=== PATIENT | male | born 1975 | race Caucasian/White ===

== ENCOUNTER 2018-05-15 18:58 | Emergency (ER) | payer MEDICARE ==
[~2018-05-15] VITALS: Ht 175.3 cm; Wt 158.8 kg
[~2018-05-15 18:58] MED LIST: ADVAIR 250-501 EACH; ADVAIR 500-501 EACH; ADVAIR HFA 230M12 GM INH; ALBUTEROL INHAL17 GM; ALBUTEROL2.5 MG/31 INH; ATIVAN1 MG PO; AZITHROMYC200 MG/51 PO; AZITHROMYCIN 2250 MG PO; BACTRIM DS TAB1 EACH; BACTRIM DS TAB1 EACH PO; CEFDINIR300 MG PO; CLEOCIN HCL150 MG PO; CLEOCIN HCL300 MG PO; CLONAZEPAM 1 MG1 M1 PO; DESYREL300 MG PO; DESYREL50 MG PO; DOXYCYCLINE 10100 MG PO; DUONEB 2.5-0.5 M3 ML; ECONOPRED PLUS10 M1; FLEXERIL PO; HYDROCODONE-AP1 EAC6 PO; IBUPROFEN 600600 M1 PO; IBUPROFEN 800800 MG PO; K-DUR 20 MEQ T20 MEQ; KEFLEX500 MG PO; KLOR-CON 1010 MEQ PO; LAMOTRIGINE100 MG PO; LAMOTRIGINE25 M2; LASIX 20 MG TAB20 MG; LASIX 40 MG TAB40 M2 PO; LASIX 80 MG TAB80 M1 PO; LASIX 80 MG TAB80 MG; LIDOCAINE VISC100 M1 SWISH&SPIT; LORTAB 7.5/5001 TA1; MELOXICAM15 MG PO; NORCO 5-325 TA1 EACH PO; NORCO 7.5-3251 EACH; NORCO 7.5-3251 EACH PO; PERCOCET 5-3251 EACH PO; PERCOCET 7.5-31 EACH PO; PHENERGAN 25 MG25 M1 PO; POTASSIUM20 PO; PROZAC40 MG PO; SINGULAIR 10 MG10 M1; SPIRIVA; SPIRIVA RESPIMAT4 G1 IH; ULTRAM 50MG TAB50 MG PO; VICODIN; WELLBUTRIN XL150 M1; XANAX 0.5 MG0.5 MG PO; ZOFRAN4 MG PO; ZPAK PO; [UNRECOGNIZED DRUG - OTHER]
[2018-05-15 19:36] LABS: ABSOLUTE BASOPHILS 0.1 thou/uL (0.0-0.2); ABSOLUTE EOSINOPHILS 0.4 thou/uL (0.0-0.7); ABSOLUTE LYMPHOCYTES 1.7 thou/uL (0.8-5.3); ABSOLUTE MONOCYTES 0.6 thou/uL (0.0-1.2); ABSOLUTE NEUTROPHILS 7.7 thou/uL (1.6-8.1); BASOPHILS 0.7 %; EOSINOPHILS 3.6 %; HEMATOCRIT 40.7 % (42.0-52.0); HEMOGLOBIN 12.9 gm/dL (14.0-18.0); LYMPHOCYTES 15.9 %; MCH 27.8 pg (26.0-34.0); MCHC 31.7 g/dL (28.0-37.0); MCV 87.8 fL (80.0-100.0); MONOCYTES 5.6 %; MPV 7.4 fl. (7.2-11.1); NUCLEATED RBCS 0 /100WBC; PLATELET COUNT* 325 thou/uL (150-400); POLYS 74.2 %; RBC 4.64 mil/uL (4.50-6.00); RDW-CV 16.8 % (10.5-14.5); WBC 10.4 thou/uL (4.0-11.0)
[2018-05-15 19:39] LABS: CALCIUM 8.3 mg/dL (8.5-10.1); CREATININE 0.6 mg/dL (0.6-1.3); POTASSIUM 4.1 mmol/L (3.5-5.1)
[2018-05-15] MEDS ORDERED: PROAIR HFA8.5 GM INH (20:13)
[2018-05-15] MEDS ORDERED: PREDNISONE50 MG PO (20:13)
[2018-05-15 20:30] VITALS: BP 143/82
--- NOTE | 2018-05-16 11:09 | EKG ---
[place] [address] ELECTROCARDIOGRAM REPORT Name: EDITA ROTHMAN Room: [facility]#: [id number] Admission: 05/15/18 Attend Phys: Discharge: 05/15/18 Date of : 77 Report #: [id number] THIS REPORT FOR: //name// [facility] ED Test Date: 2018-05-15 Test Time: 19:42:15 Pat Name: EDITA ROTHMAN Department: Room: Gender: M Sorter/Assay Tech: MS : 1975 Requested By: Zehra Brandon Order Number: [id number] MD: Demetrius Morales Measurements Intervals [place] Rate: 99 P: 74 [place]: 139 QRS: 50 QRSD: 98 T: 70 QT: 354 QTc: 455 Interpretive Statements Sinus rhythm Low voltage, precordial leads Compared to ECG 09/22/2012 15:07:54 Low QRS voltage now present Electronically Signed On 05-16-2018 11:08:52 CDT by Demetrius Morales [email or web address] <ELECTRONICALLY SIGNED> By: Demetrius Morales MD, [facility] 05/16/18 1108 41 41 Demetrius Morales MD, [facility] /EPI
== END 2018-05-15 20:32 | disposition home or self-care (01) ==
LOC: M.ERS 18:58
PROVIDERS: Emergency Medicine
DX: J44.1 Chronic obstructive pulmonary disease with (acute) exacerbation (principal); G43.909 Migraine, unspecified, not intractable, without status migrainosus; Z90.49 Acquired absence of other specified parts of digestive tract; F31.9 Bipolar disorder, unspecified; I50.9 Heart failure, unspecified; F41.9 Anxiety disorder, unspecified; F17.210 Nicotine dependence, cigarettes, uncomplicated; Z86.14 Personal history of Methicillin resistant Staphylococcus aureus infection; Z88.5 Allergy status to narcotic agent; Z91.041 Radiographic dye allergy status; Z88.8 Allergy status to other drugs, medicaments and biological substances; Z88.1 Allergy status to other antibiotic agents; Z91.013 Allergy to seafood

== ENCOUNTER 2018-05-27 07:52 | Emergency (ER) | payer MEDICARE ==
[~2018-05-27] VITALS: Ht 175.3 cm; Wt 158.8 kg
[~2018-05-27 07:52] MED LIST changes: +PREDNISONE50 MG PO; +PROAIR HFA8.5 GM INH
[2018-05-27] MEDS ORDERED: PREDNISONE 20 M20 M1 PO (08:16)
[2018-05-27] MEDS ORDERED: PERCOCET 5-3251 EACH PO (08:16)
[2018-05-27 08:20] VITALS: BP 138/76
[2018-05-27] MEDS ORDERED: VENTOLIN HFA 1818 GM INH (08:39)
== END 2018-05-27 08:20 | disposition home or self-care (01) ==
LOC: M.ERS 07:52
DX: J44.1 Chronic obstructive pulmonary disease with (acute) exacerbation (principal); R51 Headache; I50.9 Heart failure, unspecified; F31.9 Bipolar disorder, unspecified; F41.9 Anxiety disorder, unspecified; F17.210 Nicotine dependence, cigarettes, uncomplicated; Z86.14 Personal history of Methicillin resistant Staphylococcus aureus infection; Z88.5 Allergy status to narcotic agent; Z88.1 Allergy status to other antibiotic agents; Z88.8 Allergy status to other drugs, medicaments and biological substances; Z91.041 Radiographic dye allergy status; Z91.013 Allergy to seafood; Z90.49 Acquired absence of other specified parts of digestive tract

== ENCOUNTER 2018-11-24 23:48 | Emergency (ER) | payer MEDICARE, MEDICAID ==
[~2018-11-24] VITALS: Ht 175.3 cm; Wt 181.4 kg
[~2018-11-24 23:48] MED LIST changes: +PREDNISONE 20 M20 M1 PO; +VENTOLIN HFA 1818 GM INH
[2018-11-25 01:02] LABS: INFLUENZA A ANTIGEN None Detected (None Detect); INFLUENZA B ANTIGEN None Detected (None Detect)
[2018-11-25] MEDS ORDERED: ALBUTEROL2.5 MG/0.5 INH (01:40)
[2018-11-25] MEDS ORDERED: PROVENTIL HFA6.7 G1 INH (01:40)
[2018-11-25] MEDS ORDERED: PREDNISONE50 MG PO (01:40)
[2018-11-25 01:50] VITALS: BP 128/54
[2018-11-25] MEDS ORDERED: PERCOCET 7.5-31 EACH PO ×2 (01:50→11:53)
== END 2018-11-25 02:40 | disposition home or self-care (01) ==
LOC: M.ERS 23:48
PROVIDERS: Emergency Medicine
DX: J40 Bronchitis, not specified as acute or chronic (principal); G43.909 Migraine, unspecified, not intractable, without status migrainosus; J44.9 Chronic obstructive pulmonary disease, unspecified; I50.9 Heart failure, unspecified; F31.9 Bipolar disorder, unspecified; F41.9 Anxiety disorder, unspecified; F17.210 Nicotine dependence, cigarettes, uncomplicated; Z88.1 Allergy status to other antibiotic agents; Z88.5 Allergy status to narcotic agent; Z91.013 Allergy to seafood; Z91.041 Radiographic dye allergy status

== ENCOUNTER 2019-06-21 21:21 | Emergency (ER) | payer OTHER, MEDICAID ==
[~2019-06-21] VITALS: Ht 175.3 cm; Wt 226.8 kg
[~2019-06-21 21:21] MED LIST changes: +ALBUTEROL2.5 MG/0.5 INH; +PROVENTIL HFA6.7 G1 INH
[2019-06-21 22:25] LABS: INFLUENZA A ANTIGEN Negative (Negative); INFLUENZA B ANTIGEN Negative (Negative)
[2019-06-21 22:27] LABS: ABSOLUTE BASOPHILS 0.1 thou/uL (0.0-0.2); ABSOLUTE EOSINOPHILS 0.4 thou/uL (0.0-0.7); ABSOLUTE LYMPHOCYTES 1.5 thou/uL (0.8-5.3); ABSOLUTE MONOCYTES 0.5 thou/uL (0.0-1.2); ABSOLUTE NEUTROPHILS 7.6 thou/uL (1.6-8.1); BASOPHILS 1.2 %; EOSINOPHILS 3.7 %; HEMOGLOBIN 12.8 gm/dL (14.0-18.0); LYMPHOCYTES 15.1 %; MCH 28.7 pg (26.0-34.0); MCHC 32.8 g/dL (28.0-37.0); MCV 87.5 fL (80.0-100.0); MONOCYTES 5.3 %; MPV 7.3 fl. (7.2-11.1); NUCLEATED RBCS 0 /100WBC; PLATELET COUNT* 280 thou/uL (150-400); POLYS 74.7 %; RBC 4.45 mil/uL (4.50-6.00); RDW-CV 16.8 % (10.5-14.5); WBC 10.2 thou/uL (4.0-11.0)
[2019-06-21 22:34] LABS: ANION GAP 5 mmol/L (7-16); BUN 15 mg/dL (7-18); CALCIUM 8.3 mg/dL (8.5-10.1); CHLORIDE 102 mmol/L (98-107); CO2 30 mmol/L (21-32); CREATININE 0.6 mg/dL (0.6-1.3); GLUCOSE 166 mg/dL (70-99); POTASSIUM 4.2 mmol/L (3.5-5.1); SODIUM 137 mmol/L (136-145)
[2019-06-21 22:40] LABS: PROTIME 10.4 Seconds (9.20-11.50)
[2019-06-21 22:45] LABS: ALBUMIN 2.9 g/dL (3.4-5.0); ALKALINE PHOSPHATASE 73 U/L (46-116); LIPASE 102 U/L (73-393); NT-PRO BRAIN NAT PEPTIDE 19 pg/mL (<300); SGOT 10 U/L (15-37); SGPT 22 U/L (30-65); TOTAL BILIRUBIN 0.1 mg/dL (<0.1-1.0); TOTAL PROTEIN 7.1 g/dL (6.4-8.2); TROPONIN-I LEVEL <0.06 ng/mL (<0.06)
[2019-06-22 00:31] LABS: URINE BILIRUBIN NEGATIVE (Negative); URINE BLOOD NEGATIVE (Negative); URINE CLARITY CLEAR; URINE COLOR YELLOW; URINE GLUCOSE-RANDOM NEGATIVE (Negative); URINE KETONES NEGATIVE (Negative); URINE LEUKOCYTES-REFLEX NEGATIVE (Negative); URINE NITRITE-REFLEX NEGATIVE (Negative); URINE PROTEIN NEGATIVE (Negative); URINE UROBILINOGEN 0.2 E.U./dl (0.2-1.0)
[2019-06-22] MEDS ORDERED: ZOFRAN ODT4 MG PO (00:49)
[2019-06-22] MEDS ORDERED: LEVAQUIN 500 M500 MG PO (00:49)
[2019-06-22] MEDS ORDERED: NORCO 7.5-3251 EACH PO (00:49)
[2019-06-22 01:00] VITALS: BP 134/86
--- NOTE | 2019-06-22 12:43 | EKG ---
[place] [address] ELECTROCARDIOGRAM REPORT Name: EDITA ROTHMAN Room: [facility]#: [id number] Admission: 06/21/19 Attend Phys: Discharge: 06/22/19 Date of : [birth year] Report #: [id number] THIS REPORT FOR: //name// [facility] ED Test Date: 2019-06-21 Test Time: 21:50:37 Pat Name: EDITA ROTHMAN Department: Room: Gender: Brand Marketing Specialist: : 1975 Requested By: Zehra Brandon Order Number: [id number] MD: Hipolito Herrera Measurements Intervals [place] Rate: 97 P: 70 [place]: 144 QRS: 44 QRSD: 102 T: 61 QT: 347 QTc: 441 Interpretive Statements Sinus rhythm Low voltage, precordial leads RSR' in V1 or V2, right VCD or RVH Compared to ECG 05/15/2018 19:42:15 no change Electronically Signed On 06-22-2019 12:42:49 CDT by Hipolito Herrera [email or web address] <ELECTRONICALLY SIGNED> By: Hipolito Herrera MD, [facility] 06/22/19 1242 49 49 Hipolito Herrera MD, [facility] /EPI
== END 2019-06-22 01:00 | disposition home or self-care (01) ==
LOC: M.ERS 21:21
PROVIDERS: Emergency Medicine
DX: J40 Bronchitis, not specified as acute or chronic (principal); R11.2 Nausea with vomiting, unspecified; G43.909 Migraine, unspecified, not intractable, without status migrainosus; J44.9 Chronic obstructive pulmonary disease, unspecified; F31.9 Bipolar disorder, unspecified; F41.9 Anxiety disorder, unspecified; F17.210 Nicotine dependence, cigarettes, uncomplicated; Z91.013 Allergy to seafood; Z90.49 Acquired absence of other specified parts of digestive tract; Z88.6 Allergy status to analgesic agent

== ENCOUNTER 2020-03-06 19:11 | Emergency (ER) | payer OTHER, MEDICAID ==
[~2020-03-06] VITALS: Ht 177.8 cm; Wt 176.9 kg
[~2020-03-06 19:11] MED LIST changes: +LEVAQUIN 500 M500 MG PO; +ZOFRAN ODT4 MG PO
[2020-03-06 19:21] VITALS: BP 166/93
[2020-03-06] MEDS ORDERED: NORCO 5-325 TA1 EAC1 PO (19:35)
[2020-03-06] MEDS ORDERED: BACTRIM DS TAB1 EAC1 PO (19:35)
== END 2020-03-06 19:51 | disposition home or self-care (01) ==
LOC: M.ERS 19:11
DX: L73.9 Follicular disorder, unspecified (principal); I50.9 Heart failure, unspecified; J45.909 Unspecified asthma, uncomplicated; J44.9 Chronic obstructive pulmonary disease, unspecified; G43.909 Migraine, unspecified, not intractable, without status migrainosus; F31.9 Bipolar disorder, unspecified; F41.9 Anxiety disorder, unspecified; F17.210 Nicotine dependence, cigarettes, uncomplicated; Z90.49 Acquired absence of other specified parts of digestive tract; Z86.14 Personal history of Methicillin resistant Staphylococcus aureus infection; Z91.013 Allergy to seafood; Z88.1 Allergy status to other antibiotic agents; Z88.6 Allergy status to analgesic agent; Z88.8 Allergy status to other drugs, medicaments and biological substances

== ENCOUNTER 2020-03-15 20:42 | Inpatient (IN) | payer OTHER, MEDICAID ==
[~2020-03-15] VITALS: Ht 177.8 cm; Wt 251.7 kg
--- NOTE | ~2020-03-15 | OP ---
[address] [address] OPERATIVE REPORT Name: EDTIA ROTHMAN Room: [address] Ena#: [id number] Admission: 03/15/20 Attend Phys: Sandy العلي Discharge: Date of : 77 Report #: [id number] THIS REPORT FOR: //name// cc: MATTIE Espitia family physician/PCP MATTIE Espitia family physician/PCP ~ THIS REPORT FOR: //name// CC: MATTIE physician/PCP Sandy Ramirez DATE OF SERVICE: 03/16/2020 PREOPERATIVE DIAGNOSIS: Right posterior neck abscess. POSTOPERATIVE DIAGNOSIS: Right posterior neck abscess. OPERATION: Incision and drainage of right posterior neck abscess. SURGEON: Beck Guevara MD ANESTHESIA: Local. ESTIMATED BLOOD LOSS: Minimal. SPECIMEN: Fluid for culture and sensitivity. DESCRIPTION OF PROCEDURE: After informed consent was obtained, the patient was placed in the left lateral decubitus position in the hospital room. The right neck was prepped and draped in the usual sterile fashion. The area was anesthetized with 15 mL of 1% lidocaine plain. I used an 11 blade to incise the area of fluctuance with an approximately 4 cm incision. Immediately pus was expressed. Loculations were broken up with a clamp. The area was then packed with sterile gauze. Sterile dressings were applied. COMPLICATIONS: None. DISPOSITION: The patient will stay in the hospital room. By: [id number] Guevara MD /arielle
[~2020-03-15 20:42] MED LIST changes: +BACTRIM DS TAB1 EAC1 PO; +NORCO 5-325 TA1 EAC1 PO
[2020-03-15 20:51] VITALS: BP 167/86
[2020-03-15 21:53] LABS: ABSOLUTE EOSINOPHILS 0.3 thou/uL (0.0-0.7); ABSOLUTE LYMPHOCYTES 1.4 thou/uL (0.8-5.3); ABSOLUTE MONOCYTES 0.8 thou/uL (0.0-1.2); ABSOLUTE NEUTROPHILS 12.3 thou/uL (1.6-8.1); BASOPHILS 0.1 %; EOSINOPHILS 2.1 %; HEMATOCRIT 38.7 % (42.0-52.0); HEMOGLOBIN 12.7 gm/dL (14.0-18.0); LYMPHOCYTES 9.3 %; MCHC 32.8 g/dL (28.0-37.0); MCV 85.4 fL (80.0-100.0); MONOCYTES 5.1 %; MPV 7.2 fl. (7.2-11.1); NUCLEATED RBCS 0 /100WBC; PLATELET COUNT* 311 thou/uL (150-400); POLYS 83.4 %; RBC 4.53 mil/uL (4.50-6.00); RDW-CV 16.5 % (10.5-14.5); WBC 14.8 thou/uL (4.0-11.0)
[2020-03-15 22:15] LABS: CALCIUM 8.7 mg/dL (8.5-10.1); CREATININE 0.7 mg/dL (0.6-1.3); POTASSIUM 4.4 mmol/L (3.5-5.1)
[2020-03-16 00:25] VITALS: BP 153/92
[2020-03-16 01:00] VITALS: BP 167/96
--- NOTE | 2020-03-16 06:30 | NUR ---
PATIENT ARRIVED ON FLOOR FROM ER AT ABOUT 0100. PATIENT ADMISSION HISTORY AND ASSESSMENT WAS COMPLETED CHARTED. IV VANC WAS GIVEN ORDERED. PATIENT WAS GIVEN PAIN MEDICINE ABOUT EVERY THREE HOURS. PATIENT IS NPO FOR POSSIBLE PROCEDURE TODAY. WILL CONTINUE TO MONITOR.
[2020-03-16 08:35] VITALS: BP 149/89
[2020-03-16 10:32] LABS: HEMATOCRIT 38.9 % (42.0-52.0); HEMOGLOBIN 12.5 gm/dL (14.0-18.0); MCH 27.5 pg (26.0-34.0); MCHC 32.2 g/dL (28.0-37.0); MCV 85.4 fL (80.0-100.0); MPV 7.3 fl. (7.2-11.1); RBC 4.55 mil/uL (4.50-6.00); RDW-CV 16.7 % (10.5-14.5); WBC 12.2 thou/uL (4.0-11.0)
[2020-03-16 10:43] LABS: CALCIUM 8.1 mg/dL (8.5-10.1); CREATININE 0.6 mg/dL (0.6-1.3); MAGNESIUM 1.8 mg/dL (1.8-2.4); POTASSIUM 3.7 mmol/L (3.5-5.1)
[2020-03-16 10:45] LABS: APTT 28.9 Seconds (25.0-31.3); INR 1.1; PROTIME 11.1 Seconds (9.20-11.50)
--- NOTE | 2020-03-16 16:30 | NUR ---
PT A&Ox4. VITALS STABLE. IV INFULTRATED, CONTACTED INFUSION NURSE TO PUT IN A NEW IV. PAIN PARTIALLY CONTROLLED WITH IV FENTANYL AND TYLENOL. I/D AT BEDSIDE TODAY BY . RAYSHAWN AND TAPE DRESSING IN PLACE. UP AD KRISTIE. CALL LIGHT WITHIN REACH. TRILOGY IN ROOM FOR SLEEP. WILL CONTINUE TO MONITOR.
[2020-03-16 21:00] VITALS: BP 155/94
--- NOTE | 2020-03-17 05:51 | NUR ---
PATIENT SLEPT PART OF THE NIGHT. NURSING VICE PRESIDENT BUSINESS & CORPORATE DEVELOPMENT UNABLE TO GET IV. PATIENT DID NOT FEEL THAT A CENTRAL LINE WAS NECESSARY. VICE PRESIDENT BUSINESS [employer] CORPORATE DEVELOPMENT TALKED TO DR MARTINEZ HE STATED PO ANTIBIOTICS SHOULD BE FINE. DR. EDMOND STARTED PATIENT ON DOXYCYCLINE. PATIENT SHOULD BE DISCHARGED HOME TODAY. DRESSING REMAINS TO NECK ABCESS. PATIENT WAS GIVEN TYLENOL AND HYDROCODONE FOR PAIN WITH SOME RELIEF. WILL CONTINUE TO MONITOR.
[2020-03-17 07:23] VITALS: BP 179/96
[2020-03-17 08:41] VITALS: BP 179/96
[2020-03-17] MEDS ORDERED: NORCO 5-325 TA1 EAC1 PO (09:33)
[2020-03-17 10:17] VITALS: BP 179/96
--- NOTE | 2020-03-17 10:19 | NUR ---
Pt to dc home with today. Pt in need of HH nurse and SW faxed referral and orders to pt preference and in network with insurance and area for [facility].
--- NOTE | 2020-03-17 10:36 | NUR ---
PATIENT TO DISCHARGE HOME. BLOOD CULTURES DRAWN PRIOR TO DC. PATIENT GIVEN PRN HYDROCODONE AND SCHED BACTRIM THIS AM PER ORDERS. DRESSING TO NECK CHANGED AND PHOTO OBTAINED. ORDERS RECEIVED FROM DR. COLLIER FOR WOUND CARE. HOME HEALTH ORDERED AND SET UP. VERBALIZES UNDERSTANDING OF PAPERWORK, SCRIPT SENT OVER TO PHARMACY. PATIENT TAKEN OUT WITH HOSPITAL STAFF AND ALL BELONGINGS.
[2020-03-18 02:07] LABS: GLYCOHEMOGLOBIN (HGB A1C) 7.3 % (4.8-5.6)
--- NOTE | 2020-03-27 13:48 | NUR ---
Dr Raheel Ortega [facility] would not approve inpatient rate but approved Observation. After INSTRUCTOR WARPER review and Discussion in Revenue Cycle Call, CBO to re-bill Observation.
== END 2020-03-17 10:38 | disposition home health service (06) | DRG 854 ==
LOC: M.ERS 20:42 → M.TBA-ER 23:56 → M.3W 23:56 → M.ERS 03-16 00:25 → M.3W 03-16 01:06
PROVIDERS: Emergency Medicine; Internal Medicine; ADMIT Family Medicine; ATTEND Family Medicine
PROC: 0J940ZZ Drainage of Right Neck Subcutaneous Tissue and Fascia, Open Approach (ICD-10-PCS; principal; 2020-03-16)
PROC: 5A09357 Assistance with Respiratory Ventilation, Less than 24 Consecutive Hours, Continuous Positive Airway Pressure (ICD-10-PCS; principal; 2020-03-16)
DX: A41.9 Sepsis, unspecified organism (principal); L02.11 Cutaneous abscess of neck; Z68.45 Body mass index [BMI] 70 or greater, adult; G43.909 Migraine, unspecified, not intractable, without status migrainosus; J44.9 Chronic obstructive pulmonary disease, unspecified; F31.9 Bipolar disorder, unspecified; G47.33 Obstructive sleep apnea (adult) (pediatric); E66.01 Morbid (severe) obesity due to excess calories; F41.1 Generalized anxiety disorder; E11.65 Type 2 diabetes mellitus with hyperglycemia; Z90.49 Acquired absence of other specified parts of digestive tract; Z79.899 Other long term (current) drug therapy; Z88.1 Allergy status to other antibiotic agents; Z88.5 Allergy status to narcotic agent; Z91.013 Allergy to seafood; Z88.8 Allergy status to other drugs, medicaments and biological substances; Z91.048 Other nonmedicinal substance allergy status; Z87.891 Personal history of nicotine dependence; Z99.81 Dependence on supplemental oxygen

== ENCOUNTER 2020-05-03 09:15 | Emergency (ER) | payer OTHER, MEDICAID ==
[~2020-05-03] VITALS: Ht 180.3 cm; Wt 226.8 kg
[2020-05-03 10:41] LABS: ABSOLUTE BASOPHILS 0.1 thou/uL (0.0-0.2); ABSOLUTE EOSINOPHILS 0.3 thou/uL (0.0-0.7); ABSOLUTE LYMPHOCYTES 1.3 thou/uL (0.8-5.3); ABSOLUTE MONOCYTES 0.6 thou/uL (0.0-1.2); ABSOLUTE NEUTROPHILS 7.2 thou/uL (1.6-8.1); BASOPHILS 0.8 %; EOSINOPHILS 2.7 %; HEMATOCRIT 38.1 % (42.0-52.0); HEMOGLOBIN 12.7 gm/dL (14.0-18.0); LYMPHOCYTES 14.1 %; MCH 28.6 pg (26.0-34.0); MCHC 33.4 g/dL (28.0-37.0); MCV 85.5 fL (80.0-100.0); MONOCYTES 6.3 %; MPV 7.4 fl. (7.2-11.1); NUCLEATED RBCS 0 /100WBC; PLATELET COUNT* 275 thou/uL (150-400); POLYS 76.1 %; RBC 4.46 mil/uL (4.50-6.00); RDW-CV 17.4 % (10.5-14.5); WBC 9.4 thou/uL (4.0-11.0)
[2020-05-03 11:24] LABS: ALBUMIN 2.8 g/dL (3.4-5.0); CALCIUM 8.1 mg/dL (8.5-10.1); CREATININE 0.7 mg/dL (0.6-1.3); TOTAL BILIRUBIN 0.2 mg/dL (<0.1-1.0); TOTAL PROTEIN 7.5 g/dL (6.4-8.2)
[2020-05-03] MEDS ORDERED: ZOFRAN ODT4 MG PO (12:27)
[2020-05-03] MEDS ORDERED: HYDROCODON-ACE1 EA10 PO (12:27)
[2020-05-03] MEDS ORDERED: AUGMENTIN 500-1 EACH PO (12:27)
[2020-05-03 13:13] VITALS: BP 130/95
== END 2020-05-03 13:15 | disposition home or self-care (01) ==
LOC: M.ERS 09:15
PROVIDERS: Personal Emergency Response Attendant
DX: L02.11 Cutaneous abscess of neck (principal); I50.9 Heart failure, unspecified; J45.909 Unspecified asthma, uncomplicated; J44.9 Chronic obstructive pulmonary disease, unspecified; G43.909 Migraine, unspecified, not intractable, without status migrainosus; F31.9 Bipolar disorder, unspecified; F41.9 Anxiety disorder, unspecified; F17.210 Nicotine dependence, cigarettes, uncomplicated; Z90.49 Acquired absence of other specified parts of digestive tract; Z86.14 Personal history of Methicillin resistant Staphylococcus aureus infection; Z91.013 Allergy to seafood; Z88.6 Allergy status to analgesic agent; Z88.8 Allergy status to other drugs, medicaments and biological substances

== ENCOUNTER 2020-06-01 23:23 | Observation (INO) | payer OTHER, MEDICAID ==
[~2020-06-01] VITALS: Ht 175.3 cm; Wt 226.8 kg
--- NOTE | ~2020-06-01 | OP ---
[address] [address] OPERATIVE REPORT Name: EDITA ROTHMAN Room: [address] M.R.#: [id number] Admission: 06/02/20 Attend Phys: Ashley Palm MD Discharge: Date of : 77 Report #: [id number] THIS REPORT FOR: //name// cc: Trina Quinn MD, Kelly A. MD ~ CC: Trina Palm DATE OF SERVICE: 06/03/2020 PREOPERATIVE DIAGNOSIS: Right posterior neck abscess. POSTOPERATIVE DIAGNOSIS: Right posterior neck abscess. OPERATION: Incision and drainage of right posterior neck abscess. SURGEON: Beck Guevara MD ANESTHESIA: General. ESTIMATED BLOOD LOSS: Minimal. SPECIMEN: Abscess fluid for culture and sensitivity. DESCRIPTION OF PROCEDURE: After informed consent was obtained, the patient was brought to the operating room and placed supine. SCDs were placed and working, preoperative antibiotics were administered, local monitored anesthesia was induced. Please see the anesthesia notes. The right neck was then prepped and draped in the usual sterile fashion. The area was then anesthetized with 20 mL of 1% lidocaine plain. I made a 6 cm incision across the area of fluctuance. This was at the base of the right posterior neck. Cautery dissection was made down through the subcutaneous tissue. There was a copious amount of pus that was under pressure that was released. The area was then irrigated. Loculations were broken up with a clamp. The area was then packed with sterile gauze. Cultures were taken prior to packing. Sterile dressings were applied. COMPLICATIONS: None. DISPOSITION: The patient was taken to recovery in satisfactory condition. By: [id number] Guevara MD /nt
[~2020-06-01 23:23] MED LIST changes: +AUGMENTIN 500-1 EACH PO; +HYDROCODON-ACE1 EA10 PO
[2020-06-01 23:33] VITALS: BP 160/88
[2020-06-02 00:43] LABS: ABSOLUTE BASOPHILS 0.1 thou/uL (0.0-0.2); ABSOLUTE EOSINOPHILS 0.2 thou/uL (0.0-0.7); ABSOLUTE LYMPHOCYTES 1.4 thou/uL (0.8-5.3); ABSOLUTE MONOCYTES 0.7 thou/uL (0.0-1.2); BASOPHILS 1.2 %; EOSINOPHILS 1.9 %; HEMATOCRIT 40.3 % (42.0-52.0); HEMOGLOBIN 13.3 gm/dL (14.0-18.0); LYMPHOCYTES 11.5 %; MCH 28.2 pg (26.0-34.0); MCHC 33.1 g/dL (28.0-37.0); MONOCYTES 5.4 %; MPV 7.7 fl. (7.2-11.1); NUCLEATED RBCS 0 /100WBC; PLATELET COUNT* 280 thou/uL (150-400); RBC 4.74 mil/uL (4.50-6.00); RDW-CV 18.3 % (10.5-14.5); WBC 12.5 thou/uL (4.0-11.0)
[2020-06-02 00:51] LABS: CALCIUM 7.9 mg/dL (8.5-10.1); CREATININE 0.8 mg/dL (0.6-1.3); POTASSIUM 4.3 mmol/L (3.5-5.1)
[2020-06-02 00:53] LABS: PROTIME 10.6 Seconds (9.20-11.50)
[2020-06-02 00:55] LABS: ALBUMIN 3.1 g/dL (3.4-5.0); MAGNESIUM 1.8 mg/dL (1.8-2.4); TOTAL BILIRUBIN 0.3 mg/dL (<0.1-1.0); TOTAL PROTEIN 7.9 g/dL (6.4-8.2)
[2020-06-02 02:50] VITALS: BP 149/93
[2020-06-02 03:30] VITALS: BP 105/52
[2020-06-02 07:30] VITALS: BP 151/89
[2020-06-02 11:30] VITALS: BP 140/75
[2020-06-02 16:00] VITALS: BP 133/81
[2020-06-03 00:47] VITALS: BP 156/84
[2020-06-03 04:00] VITALS: BP 120/46
[2020-06-03 04:15] VITALS: BP 156/84
[2020-06-03 07:00] LABS: ABSOLUTE BASOPHILS 0.1 thou/uL (0.0-0.2); ABSOLUTE EOSINOPHILS 0.3 thou/uL (0.0-0.7); ABSOLUTE LYMPHOCYTES 1.5 thou/uL (0.8-5.3); ABSOLUTE MONOCYTES 0.7 thou/uL (0.0-1.2); ABSOLUTE NEUTROPHILS 10.3 thou/uL (1.6-8.1); BASOPHILS 0.9 %; EOSINOPHILS 2.1 %; HEMATOCRIT 39.2 % (42.0-52.0); HEMOGLOBIN 12.7 gm/dL (14.0-18.0); LYMPHOCYTES 11.8 %; MCH 27.7 pg (26.0-34.0); MCHC 32.4 g/dL (28.0-37.0); MCV 85.4 fL (80.0-100.0); MONOCYTES 5.5 %; MPV 7.3 fl. (7.2-11.1); NUCLEATED RBCS 0 /100WBC; PLATELET COUNT* 289 thou/uL (150-400); POLYS 79.7 %; RBC 4.58 mil/uL (4.50-6.00); RDW-CV 17.7 % (10.5-14.5); WBC 12.9 thou/uL (4.0-11.0)
[2020-06-03 07:11] LABS: APTT 27.1 Seconds (25.0-31.3); INR 1.1; PROTIME 10.9 Seconds (9.20-11.50)
[2020-06-03 07:13] LABS: CALCIUM 7.9 mg/dL (8.5-10.1); CREATININE 0.7 mg/dL (0.6-1.3); POTASSIUM 3.9 mmol/L (3.5-5.1); TOTAL BILIRUBIN 0.4 mg/dL (<0.1-1.0); TOTAL PROTEIN 7.7 g/dL (6.4-8.2)
[2020-06-03 08:00] VITALS: BP 156/84
[2020-06-03] MEDS ORDERED: PHENERGAN 25 MG25 M1 PO (09:49)
[2020-06-03] MEDS ORDERED: HYDROCODON-ACE1 EAC7 PO (09:52)
[2020-06-03] MEDS ORDERED: BACTRIM DS TAB1 EACH PO (09:52)
[2020-06-03 14:26] VITALS: BP 156/84
[2020-06-03 15:00] VITALS: BP 156/84
--- NOTE | 2020-06-03 16:27 | EKG ---
[place] [address] ELECTROCARDIOGRAM REPORT Name: EDITA ROTHMAN Room: [address] M..#: [id number] Admission: 06/02/20 Attend Phys: Ashley Palm, Discharge: 06/03/20 Date of : 77 Date of Service: 06/03/20 0610 Report #: [id number] THIS REPORT FOR: //name// [facility] Test Date: 2020-06-03 Test Time: 06:10:41 Pat Name: EDITA ROTHMAN Department: Room: [place] [address] Gender: M Pricing Coordinator: LADI : 1975 Requested By: Vinh Jaimes Order Number: [id number] MD: Kenan Harrell Measurements Intervals [place] Rate: 99 P: 68 [place]: 146 QRS: 47 QRSD: 107 T: 60 QT: 361 QTc: 464 Interpretive Statements Sinus rhythm Low voltage, precordial leads RSR' in V1 or V2, right VCD Compared to ECG 06/21/2019 21:50:37 No significant changes Electronically Signed On 06-03-2020 16:27:36 CDT by Kenan Harrell [email or web address] <ELECTRONICALLY SIGNED> By: Kenan Harrell MD, [facility] 06/03/20 1627 0610 0610 Kenan Harrell MD, [facility] /EPI
== END 2020-06-03 16:00 | disposition home or self-care (01) ==
LOC: M.ERS 23:23 → M.2W 06-02 01:51 → M.TBA-ER 06-02 01:51 → M.2W 06-02 03:09
PROVIDERS: Internal Medicine; Personal Emergency Response Attendant; ADMIT Internal Medicine; ATTEND Internal Medicine
DX: L02.11 Cutaneous abscess of neck (principal); G43.909 Migraine, unspecified, not intractable, without status migrainosus; J45.909 Unspecified asthma, uncomplicated; J44.9 Chronic obstructive pulmonary disease, unspecified; G47.33 Obstructive sleep apnea (adult) (pediatric); F41.9 Anxiety disorder, unspecified; F31.9 Bipolar disorder, unspecified; G40.909 Epilepsy, unspecified, not intractable, without status epilepticus; I50.9 Heart failure, unspecified; F17.210 Nicotine dependence, cigarettes, uncomplicated; S83.412A Sprain of medial collateral ligament of left knee, initial encounter; X58.XXXA Exposure to other specified factors, initial encounter; Y93.89 Activity, other specified; Y92.89 Other specified places as the place of occurrence of the external cause; Z94.7 Corneal transplant status; Z98.84 Bariatric surgery status; Z86.14 Personal history of Methicillin resistant Staphylococcus aureus infection; Z79.899 Other long term (current) drug therapy; Z20.828 Contact with and (suspected) exposure to other viral communicable diseases

== ENCOUNTER 2020-08-21 17:28 | Emergency (ER) | payer OTHER, MEDICAID ==
[~2020-08-21] VITALS: Ht 175.3 cm; Wt 204.1 kg
[~2020-08-21 17:28] MED LIST changes: +HYDROCODON-ACE1 EAC7 PO
[2020-08-21] MEDS ORDERED: BACTRIM DS TAB1 EACH PO (18:42)
[2020-08-21] MEDS ORDERED: KEFLEX500 M1 PO (18:42)
[2020-08-21] MEDS ORDERED: PERCOCET 5-3251 EACH PO (18:42)
[2020-08-21 18:45] VITALS: BP 156/91
== END 2020-08-21 18:46 | disposition home or self-care (01) ==
LOC: M.ERS 17:28
DX: L03.221 Cellulitis of neck (principal); G43.909 Migraine, unspecified, not intractable, without status migrainosus; J44.9 Chronic obstructive pulmonary disease, unspecified; I50.9 Heart failure, unspecified; F17.210 Nicotine dependence, cigarettes, uncomplicated; Z91.013 Allergy to seafood; Z88.6 Allergy status to analgesic agent; Z88.1 Allergy status to other antibiotic agents; Z88.8 Allergy status to other drugs, medicaments and biological substances; Z90.49 Acquired absence of other specified parts of digestive tract

== ENCOUNTER 2020-08-22 23:55 | Inpatient (IN) | payer OTHER, MEDICAID ==
[~2020-08-22] VITALS: Ht 175.3 cm; Wt 244.0 kg
[~2020-08-22 23:55] MED LIST changes: +KEFLEX500 M1 PO
[2020-08-23 00:32] VITALS: BP 163/98
[2020-08-23 03:02] LABS: ABSOLUTE BASOPHILS 0.2 thou/uL (0.0-0.2); ABSOLUTE EOSINOPHILS 0.3 thou/uL (0.0-0.7); ABSOLUTE LYMPHOCYTES 1.9 thou/uL (0.8-5.3); ABSOLUTE MONOCYTES 0.8 thou/uL (0.0-1.2); ABSOLUTE NEUTROPHILS 11.8 thou/uL (1.6-8.1); BASOPHILS 1.2 %; EOSINOPHILS 1.7 %; HEMATOCRIT 39.9 % (42.0-52.0); HEMOGLOBIN 12.9 gm/dL (14.0-18.0); LYMPHOCYTES 12.8 %; MCH 28.2 pg (26.0-34.0); MCHC 32.4 g/dL (28.0-37.0); MCV 87.1 fL (80.0-100.0); MONOCYTES 5.3 %; MPV 7.1 fl. (7.2-11.1); NUCLEATED RBCS 0 /100WBC; PLATELET COUNT* 310 thou/uL (150-400); RBC 4.58 mil/uL (4.50-6.00); RDW-CV 16.3 % (10.5-14.5); WBC 14.9 thou/uL (4.0-11.0)
[2020-08-23 03:11] LABS: CREATININE 0.9 mg/dL (0.6-1.3); POTASSIUM 4.1 mmol/L (3.5-5.1)
[2020-08-23 03:15] LABS: ALBUMIN 2.8 g/dL (3.4-5.0); TOTAL BILIRUBIN 0.3 mg/dL (<0.1-1.0); TOTAL PROTEIN 8.1 g/dL (6.4-8.2)
[2020-08-23 05:30] VITALS: BP 120/67
[2020-08-23 07:35] VITALS: BP 186/98
[2020-08-23 15:42] VITALS: BP 146/80
[2020-08-23 19:52] VITALS: BP 153/97
[2020-08-24 07:30] VITALS: BP 139/77
[2020-08-24 10:42] LABS: ABSOLUTE BASOPHILS 0.1 thou/uL (0.0-0.2); ABSOLUTE LYMPHOCYTES 2.5 thou/uL (0.8-5.3); ABSOLUTE MONOCYTES 0.8 thou/uL (0.0-1.2); ABSOLUTE NEUTROPHILS 10.3 thou/uL (1.6-8.1); BASOPHILS 0.5 %; EOSINOPHILS 0.3 %; HEMATOCRIT 39.2 % (42.0-52.0); HEMOGLOBIN 12.5 gm/dL (14.0-18.0); LYMPHOCYTES 17.9 %; MCH 27.7 pg (26.0-34.0); MCHC 31.8 g/dL (28.0-37.0); MCV 87.2 fL (80.0-100.0); MPV 7.5 fl. (7.2-11.1); NUCLEATED RBCS 0 /100WBC; PLATELET COUNT* 341 thou/uL (150-400); POLYS 75.3 %; RBC 4.49 mil/uL (4.50-6.00); RDW-CV 16.2 % (10.5-14.5); WBC 13.7 thou/uL (4.0-11.0)
[2020-08-24 10:52] LABS: ALBUMIN 2.5 g/dL (3.4-5.0); ALKALINE PHOSPHATASE 84 U/L (46-116); ANION GAP 4 mmol/L (7-16); BUN 17 mg/dL (7-18); CALCIUM 8.4 mg/dL (8.5-10.1); CHLORIDE 99 mmol/L (98-107); CHOLESTEROL 151 mg/dL (<200); CO2 33 mmol/L (21-32); CREATININE 0.9 mg/dL (0.6-1.3); GLUCOSE 278 mg/dL (70-99); HDL CHOLESTEROL 37 mg/dL (>40); LDL CHOLESTEROL 95 mg/dL (<100); SGOT 10 U/L (15-37); SGPT 23 U/L (30-65); SODIUM 136 mmol/L (136-145); TC:HDL 4.1 Ratio (Not establshd); TOTAL BILIRUBIN 0.1 mg/dL (<0.1-1.0); TOTAL PROTEIN 7.2 g/dL (6.4-8.2); TRIGLYCERIDE 95 mg/dL (<150); VLDL 19 mg/dL (<40)
[2020-08-24 10:54] LABS: SERUM ASSESSMENT Clear
[2020-08-24 15:50] VITALS: BP 121/66
[2020-08-24 21:57] VITALS: BP 154/94
[2020-08-25 07:20] VITALS: BP 159/84
[2020-08-25 09:28] VITALS: BP 159/84
[2020-08-25 15:46] VITALS: BP 136/75
[2020-08-26 07:10] VITALS: BP 141/72
[2020-08-26] MEDS ORDERED: METFORMIN HCL500 MG PO (07:59)
[2020-08-26 08:20] VITALS: BP 159/84
--- NOTE | 2020-08-26 08:30 | EKG ---
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: JONAS : 1975 Requested By: Zehra Brandon Order Number: [id number] MD: Manish Madera Measurements Intervals [place] Rate: 104 P: 62 [place]: 142 QRS: 46 QRSD: 105 T: 52 QT: 352 QTc: 463 Interpretive Statements Sinus tachycardia Low voltage, precordial leads RSR' in V1 or V2, right VCD or RVH Compared to ECG 06/03/2020 06:10:41 Right ventricular hypertrophy now present Sinus rhythm no longer present Electronically Signed On 08-26-2020 8:30:37 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
[2020-08-26 09:58] VITALS: BP 159/84
[2020-08-26 10:41] VITALS: BP 159/84
[2020-08-26 10:59] VITALS: BP 159/84
[2020-08-26 11:11] VITALS: BP 159/84
== END 2020-08-26 11:23 | disposition home health service (06) | DRG 872 ==
LOC: M.ERS 23:55 → M.TBA-ER 08-23 04:22 → M.3W 08-23 04:22
PROVIDERS: Emergency Medicine; ADMIT Internal Medicine; ATTEND Internal Medicine
PROC: 5A09357 Assistance with Respiratory Ventilation, Less than 24 Consecutive Hours, Continuous Positive Airway Pressure (ICD-10-PCS; principal; 2020-08-23)
PROC: 5A09357 Assistance with Respiratory Ventilation, Less than 24 Consecutive Hours, Continuous Positive Airway Pressure (ICD-10-PCS; 2020-08-24)
PROC: 0J943ZZ Drainage of Right Neck Subcutaneous Tissue and Fascia, Percutaneous Approach (ICD-10-PCS; 2020-08-24)
PROC: 5A09357 Assistance with Respiratory Ventilation, Less than 24 Consecutive Hours, Continuous Positive Airway Pressure (ICD-10-PCS; 2020-08-25)
DX: A41.9 Sepsis, unspecified organism (principal); L03.221 Cellulitis of neck; L02.11 Cutaneous abscess of neck; Z68.45 Body mass index [BMI] 70 or greater, adult; E44.1 Mild protein-calorie malnutrition; G43.909 Migraine, unspecified, not intractable, without status migrainosus; J44.9 Chronic obstructive pulmonary disease, unspecified; F31.9 Bipolar disorder, unspecified; E66.01 Morbid (severe) obesity due to excess calories; I50.9 Heart failure, unspecified; I11.0 Hypertensive heart disease with heart failure; E11.65 Type 2 diabetes mellitus with hyperglycemia; F41.9 Anxiety disorder, unspecified; G47.33 Obstructive sleep apnea (adult) (pediatric); Z20.828 Contact with and (suspected) exposure to other viral communicable diseases; Z79.899 Other long term (current) drug therapy; Z90.49 Acquired absence of other specified parts of digestive tract; Z88.8 Allergy status to other drugs, medicaments and biological substances; Z88.1 Allergy status to other antibiotic agents; Z91.013 Allergy to seafood

== ENCOUNTER 2020-09-09 00:32 | Emergency (ER) | payer OTHER, MEDICAID ==
[~2020-09-09] VITALS: Ht 175.3 cm; Wt 204.1 kg
[~2020-09-09 00:32] MED LIST changes: +METFORMIN HCL500 MG PO
[2020-09-09] MEDS ORDERED: PERCOCET 5-3251 EACH PO (01:46)
[2020-09-09] MEDS ORDERED: CLEOCIN HCL150 M1 PO (01:46)
[2020-09-09 02:15] VITALS: BP 105/62
== END 2020-09-09 02:15 | disposition home or self-care (01) ==
LOC: M.ERS 00:32
DX: L02.11 Cutaneous abscess of neck (principal); G43.909 Migraine, unspecified, not intractable, without status migrainosus; J44.9 Chronic obstructive pulmonary disease, unspecified; I50.9 Heart failure, unspecified; G47.33 Obstructive sleep apnea (adult) (pediatric); F17.210 Nicotine dependence, cigarettes, uncomplicated; Z88.5 Allergy status to narcotic agent; Z91.013 Allergy to seafood; Z88.1 Allergy status to other antibiotic agents; Z88.8 Allergy status to other drugs, medicaments and biological substances; Z98.890 Other specified postprocedural states; Z86.14 Personal history of Methicillin resistant Staphylococcus aureus infection

== ENCOUNTER 2021-01-31 12:29 | Emergency (ER) | payer OTHER, MEDICAID ==
[~2021-01-31] VITALS: Ht 177.8 cm; Wt 217.7 kg
--- NOTE | ~2021-01-31 | EMS ---
[address] [address] EMS Patient Care Report Name: YUSEF ROTHMAN [facility] Ena#: [id number] Admission: 01/31/21 Attend Phys: Discharge: 01/31/21 Date of : [birth year] Report #: [id number] THIS REPORT FOR: //name// Report Transmitted: 01/31/2021 13:17 EMS Care Summary [place] Incident [id number] @ 01/31/2021 11:47 Incident Location [address] [place] [address] Patient yusef rothman Male, 45 Years 1975 Patient Address [address] [place] [address] Patient History Unspecified asthma,Bipolar disorder, unspecified,Tobacco use,Obesity, unspecified,Chronic Obstructive Pulmonary Disease (COPD),Anxiety disorder, unspecified,Type 1 diabetes mellitus,Congestive Heart Failure (CHF),Cellulitis, Patient Allergies , Patient Medications Metformin, Chief Complaint Fall Disposition Transported No Lights/[place] Dispatch Reason Unknown Problem/Person Down Transported To [facility] Narrative [facility] WAS DISPATCHED TO THE LISTED LOCAL ADDRESS ON AN UNKNOWN MEDICAL. ARRIVING ON SCENE, WE OBSERVED IFD TALKING TO AN ALERT, [employer], WHO WAS [address] [address] EMS Patient Care Report Name: YUSEF ROTHMAN Room: [facility]#: [id number] Admission: 01/31/21 Attend Phys: Discharge: 01/31/21 Date of : 77 Report #: [id number] SITTING IN A CHAIR ON THE FRONT PORCH. WE APPROACHED THE INDIVIDUAL AND IFD, I COULD SEE IFD OBTAINING A BLOOD GLUCOSE. IFD introduced THE [employer] THE PATIENT STATING HE (THE PATIENR) WAS WORRIED ABOUT HIS DIABETES. IFD STATED THE PATIENT REPORTED HIS blood SUGAR 500; THE READING THEY JUST OBTAINED WAS 207. THE PATIENT STATED HE TOOK TWO (2) 500MG METFORMIN PILLS AFTER HE TOOK HIS BLOOD SUGAR. THE PATIENT HAD NO OBVIOUS IMMEDIATE LIFE THREATS BUT APPEARED TO BE anxious. THE PATIENT WAS fidgeting WITH HIS HANDS AND WOULD START TO GET UPSET WHEN DESCRIBING HIS SYMPTOMS. THE PATIENT STATED FOR THE LAST THREE (3) DAYS HIS BLOOD SUGAR HAD BEEN REALLY HIGH AND HE HAS NOT FELT WELL. HE STATED HE HAS ALSO BEEN EXPERIENCING "PINS AND NEEDLES" IN HIS FEET. THE PATIENT DENIED ANY HEADACHES, NAUSEA, VOMITING, VISUAL IMPAIRMENTS, DIFFICULTY BREATHING, CHEST PAIN OR PAIN OF ANY TYPE. THE PATIENT STATED HE WOULD LIKE TO BE TRANSPORTED TO THE [facility] TO BE CHECKED OUT. HE STATED HE WAS ABLE TO WALK AND STAND ON HIS OWN. THE PATIENT WALKED TO THE AMBULANCE LOCATED IN THE STREET. HE WAS ABLE TO GET into THE BACK OF THE AMBULANCE AND SIT ON THE STRETCHER WITHOUT INCIDENT OR ASSISTANCE. INSIDE THE AMBULANCE THE PATIENT STATED HE NEED OXYGEN AND IS usually ON TWO (2) LITERS OF OXYGEN AT ALL TIMES. THE PATIENT WAS PLACED ON TWO (2) LITERS OF OXYGEN VIA CAPNO CANNULA. EMT CEASAR COACHED THE PATIENT ON HIS BREATHING TO HELP CALM HIM DOWN WHILE I PLACED HIM ON THE MONITOR. A FULL SET OF VITALS WERE OBTAINED AND A SECONDARY ASSESSMENT COMPLETED ( NOTED). TRANSPORT WAS INITIATED WHILE I FINISHED OBTAINING A PATIENT HISTORY. THE patient ADDED HE HAS ALSO BEEN DIZZY FOR THE LAST FEW DAYS AND ACTUALLY FELL EARLIER THIS MORNING BECAUSE OF IT. THE PATIENT STATED HE WENT TO GO TO THE BATHROOM. WHILE HE WAS STANDING THERE HE GOT DIZZY AND FELL ONTO HIS RIGHT KNEE. THE patient DENIED TAKING ANY BLOOD THINNERS, HITTING HIS HEAD, OR LOSING consciousness. I OBTAINED AN ECG ( NOTED). WHEN I ASKED THE PATIENT WHAT HIS CHIEF COMPLAINT WAS, HE STATED THE KNEE PAIN FROM THE FALL. AT DESTINATION, THE PATIENT SIGNED THE PRIVACY AND transport FORM. HIS OXYGEN WAS connected TO THE STRETCHERS tank. HE WAS UNLOADED FROM THE AMBULANCE AND TAKEN INTO ROOM 11. THE STRETCHER WAS LOWERED AND THE LAP BELTS REMOVED. THE PATIENTS OXYGEN WAS DISCONNECTED. HE WAS ABLE TO STAND AND WALK TO THE HOSPITAL BED WITHOUT ASSISTANCE OR INCIDENT. I GAVE DINA SOLIS A VERBAL PATIENT REPORT. SHE SIGNED THE RECEIVING FACILITY FORM, COMPLETING THE TRANSFER OF CARE. [facility] CREW CLEARED THE CALL. Initial Vitals @12:01SpO2: 96, @12:02SpO2: 96, @12:03SpO2: 96, @12:07SpO2: 95, @12:12SpO2: 95, @12:15SpO2: 95, @12:16SpO2: 95, @12:17SpO2: 95, @12:11 @12:03P: 94,R: 18,BP: 162/100, [place] [address] EMS Patient Care Report Name: YUSEF ROTHMAN Room: [facility] JOANNA Sutherland#: [id number] Admission: 01/31/21 Attend Phys: Discharge: 01/31/21 Date of : 77 Report #: [id number] @12:16P: 47,R: 18,BP: 151/93, @12:22P: 90,R: 16,BP: 137/86, @11:58TbQM6: 40, @12:01OfCX5: 37, @12:92KoCO2: 41, @12:23JiUC9: 39, @12:40CkOO8: 41, @12:76LtKO4: 37, @12:65ZpBD0: 37, @12:32SvCJ4: 38, @12:97CsMB5: 35, @12:05YbMH5: 41, @12:35EfII8: 41, @12:68XjEJ7: 41, @12:03GCS: 15, @12:16GCS: 15, @12:22GCS: 15, @11:52 @PTAGlucose: 207, Assessments @11:52MENTAL:SKIN:HEENT:LUNG SOUNDS:ABDOMEN:PELVIS//GI:EXTREMITIES:PULSE:NEURO: Impression Syncope / Fainting Procedures @12:03Oxygen Complications: ,Response: Improved@11:95REWT6 digital capnographyResponse: UnchangedSucceeded@12:84IMOG4 digital capnographyResponse: UnchangedSucceeded@12:72DPIH3 digital capnographyResponse: UnchangedSucceeded@12:69TKUI9 digital capnographyResponse: UnchangedSucceeded@12:52MJHO0 digital capnographyResponse: UnchangedSucceeded@12:51KBRL1 digital capnographyResponse: UnchangedSucceeded@12:99QOYO8 digital capnographyResponse: UnchangedSucceeded@12:35DGVI6 digital capnographyResponse: UnchangedSucceeded@12:39LLOR5 digital capnographyResponse: UnchangedSucceeded@12:11UKVR2 digital capnographyResponse: UnchangedSucceeded@12:12JGPB8 digital capnographyResponse: UnchangedSucceeded@12:28SRFV9 digital capnographyResponse: UnchangedSucceeded@12:1112-Lead ECGResponse: UnchangedSucceeded 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,BP: / M,PULSE: ,RR: R,SPO2: Ox,ETCO2: ,B,PAIN: ,GCS: , 11:46,Call Received 11:46,[place] [address] EMS Patient Care Report Name: YUSEF ROTHMAN Room: [facility]#: [id number] Admission: 01/31/21 Attend Phys: Discharge: 01/31/21 Date of : 77 Report #: [id number] 11:46,Psa Call 11:47,Dispatched 11:47,En Route 11:51,On Scene 11:52,At Patient 11:52,BP: / M,PULSE: ,RR: R,SPO2: Ox,ETCO2: ,BG: ,PAIN: ,GCS: , 11:57,ETCO2 digital capnography,Response: UnchangedSucceeded, 11:57,BP: / M,PULSE: ,RR: R,SPO2: Ox,ETCO2: 40 ,BG: ,PAIN: ,GCS: , 12:01,ETCO2 digital capnography,Response: UnchangedSucceeded, 12:01,BP: / M,PULSE: ,RR: R,SPO2: 96 Ox,ETCO2: ,BG: ,PAIN: ,GCS: , 12:01,BP: / M,PULSE: ,RR: R,SPO2: Ox,ETCO2: 37 ,BG: ,PAIN: ,GCS: , 12:02,ETCO2 digital capnography,Response: UnchangedSucceeded, 12:02,BP: / M,PULSE: ,RR: R,SPO2: 96 Ox,ETCO2: ,BG: ,PAIN: ,GCS: , 12:02,BP: / M,PULSE: ,RR: R,SPO2: Ox,ETCO2: 41 ,BG: ,PAIN: ,GCS: , 12:03,ETCO2 digital capnography,Response: UnchangedSucceeded, 12:03,BP: / M,PULSE: ,RR: R,SPO2: 96 Ox,ETCO2: ,BG: ,PAIN: ,GCS: , 12:03,BP: 162/100 M,PULSE: 94,RR: 18 R,SPO2: Ox,ETCO2: ,BG: ,PAIN: ,GCS: , 12:03,BP: / M,PULSE: ,RR: R,SPO2: Ox,ETCO2: 39 ,BG: ,PAIN: ,GCS: , 12:03,BP: / M,PULSE: ,RR: R,SPO2: Ox,ETCO2: ,BG: ,PAIN: ,GCS: 15, 12:03,Oxygen Complications: ,,Response: Improved 12:05,Depart Scene 12:07,ETCO2 digital capnography,Response: UnchangedSucceeded, 12:07,BP: / M,PULSE: ,RR: R,SPO2: 95 Ox,ETCO2: ,BG: ,PAIN: ,GCS: , 12:07,BP: / M,PULSE: ,RR: R,SPO2: Ox,ETCO2: 41 ,BG: ,PAIN: ,GCS: , 12:11,12-Lead ECG,Response: UnchangedSucceeded, 12:11,BP: / M,PULSE: ,RR: R,SPO2: Ox,ETCO2: ,BG: ,PAIN: ,GCS: , 12:12,ETCO2 digital capnography,Response: UnchangedSucceeded, 12:12,BP: / M,PULSE: ,RR: R,SPO2: 95 Ox,ETCO2: ,BG: ,PAIN: ,GCS: , 12:12,BP: / M,PULSE: ,RR: R,SPO2: Ox,ETCO2: 37 ,BG: ,PAIN: ,GCS: , 12:15,ETCO2 digital capnography,Response: UnchangedSucceeded, 12:15,BP: / M,PULSE: ,RR: R,SPO2: 95 Ox,ETCO2: ,BG: ,PAIN: ,GCS: , 12:15,BP: / M,PULSE: ,RR: R,SPO2: Ox,ETCO2: 37 ,BG: ,PAIN: ,GCS: , 12:16,ETCO2 digital capnography,Response: UnchangedSucceeded, 12:16,BP: / M,PULSE: ,RR: R,SPO2: 95 Ox,ETCO2: ,BG: ,PAIN: ,GCS: , 12:16,BP: 151/93 M,PULSE: 47,RR: 18 R,SPO2: Ox,ETCO2: ,BG: ,PAIN: ,GCS: , 12:16,BP: / M,PULSE: ,RR: R,SPO2: Ox,ETCO2: 38 ,BG: ,PAIN: ,GCS: , 12:16,BP: / M,PULSE: ,RR: R,SPO2: Ox,ETCO2: ,BG: ,PAIN: ,GCS: 15, 12:17,ETCO2 digital capnography,Response: UnchangedSucceeded, 12:17,BP: / M,PULSE: ,RR: R,SPO2: 95 Ox,ETCO2: ,BG: ,PAIN: ,GCS: , 12:17,BP: / M,PULSE: ,RR: R,SPO2: Ox,ETCO2: 35 ,BG: ,PAIN: ,GCS: , 12:22,ETCO2 digital capnography,Response: UnchangedSucceeded, 12:22,ETCO2 digital capnography,Response: UnchangedSucceeded, 12:22,ETCO2 digital capnography,Response: UnchangedSucceeded, 12:22,BP: 137/86 M,PULSE: 90,RR: 16 R,SPO2: Ox,ETCO2: ,BG: ,PAIN: ,GCS: , 12:22,BP: / M,PULSE: ,RR: R,SPO2: Ox,ETCO2: 41 ,BG: ,PAIN: ,GCS: , 12:22,BP: / M,PULSE: ,RR: R,SPO2: Ox,ETCO2: 41 ,BG: ,PAIN: ,GCS: , [address] [place] [address] EMS Patient Care Report Name: YUSEF ROTHMAN Room: [facility]#: [id number] Admission: 01/31/21 Attend Phys: Discharge: 01/31/21 Date of : [birth year] Report #: [id number] 12:22,BP: / M,PULSE: ,RR: R,SPO2: Ox,ETCO2: 41 ,BG: ,PAIN: ,GCS: , 12:22,BP: / M,PULSE: ,RR: R,SPO2: Ox,ETCO2: ,BG: ,PAIN: ,GCS: 15, 12:25,At Destination 12:44,Call Closed Disclaimer v1.1 Copyright 2020 [employer] This EMS Care Summary contains data elements from the applicable legal record (which may be displayed differently). It is designed to provide pertinent information for the following purposes: continuity of care, clinical quality, and state data reporting. The complete legal record is available to ED staff and administrators of the receiving hospital in [employer]'s Patient Tracker. All data is provided "as is."
[~2021-01-31 12:29] MED LIST changes: +CLEOCIN HCL150 M1 PO
[2021-01-31 13:14] LABS: ABSOLUTE BASOPHILS 0.1 thou/uL (0.0-0.2); ABSOLUTE EOSINOPHILS 0.3 thou/uL (0.0-0.7); ABSOLUTE LYMPHOCYTES 1.5 thou/uL (0.8-5.3); ABSOLUTE MONOCYTES 0.5 thou/uL (0.0-1.2); ABSOLUTE NEUTROPHILS 6.1 thou/uL (1.6-8.1); BASOPHILS 0.9 %; EOSINOPHILS 3.1 %; HEMATOCRIT 42.3 % (42.0-52.0); HEMOGLOBIN 13.6 gm/dL (14.0-18.0); LYMPHOCYTES 17.7 %; MCH 28.1 pg (26.0-34.0); MCV 87.7 fL (80.0-100.0); MONOCYTES 6.3 %; MPV 7.1 fl. (7.2-11.1); NUCLEATED RBCS 0 /100WBC; PLATELET COUNT* 260 thou/uL (150-400); RBC 4.83 mil/uL (4.50-6.00); RDW-CV 15.8 % (10.5-14.5); WBC 8.4 thou/uL (4.0-11.0)
[2021-01-31] MEDS ORDERED: PERCOCET PO (13:18)
[2021-01-31 13:23] LABS: CALCIUM 8.9 mg/dL (8.5-10.1); CREATININE 0.7 mg/dL (0.6-1.3); POTASSIUM 4.1 mmol/L (3.5-5.1)
[2021-01-31 13:25] VITALS: BP 127/79
[2021-01-31 13:27] LABS: ALBUMIN 2.9 g/dL (3.4-5.0); TOTAL BILIRUBIN 0.3 mg/dL (<0.1-1.0); TOTAL PROTEIN 7.6 g/dL (6.4-8.2)
--- NOTE | 2021-02-01 09:48 | EKG ---
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: avtar : 1975 Requested By: Paolo Hale Order Number: [id number] MD: Manish Madera Measurements Intervals [place] Rate: 90 P: 16 [place]: 133 QRS: 46 QRSD: 109 T: 55 QT: 380 QTc: 465 Interpretive Statements Sinus rhythm Atrial premature complexes Low voltage, precordial leads Compared to ECG 08/23/2020 03:36:33 Atrial premature complex(es) now present Sinus tachycardia no longer present Right ventricular hypertrophy no longer present Electronically Signed On 02-01-2021 9:48:05 CDT by Manish Madera [email or web address] <ELECTRONICALLY SIGNED> By: Carmela Madera MD, [facility] 02/01/21 0948 1246 1246 Carmela Madera MD, [facility] /EPI
== END 2021-01-31 13:25 | disposition home or self-care (01) ==
LOC: M.ERS 12:29
PROVIDERS: Family Medicine
DX: S80.01XA Contusion of right knee, initial encounter (principal); G43.909 Migraine, unspecified, not intractable, without status migrainosus; J44.9 Chronic obstructive pulmonary disease, unspecified; I50.9 Heart failure, unspecified; G47.33 Obstructive sleep apnea (adult) (pediatric); F17.210 Nicotine dependence, cigarettes, uncomplicated; Z88.5 Allergy status to narcotic agent; Z86.14 Personal history of Methicillin resistant Staphylococcus aureus infection; Z90.49 Acquired absence of other specified parts of digestive tract; Z91.041 Radiographic dye allergy status; Z88.8 Allergy status to other drugs, medicaments and biological substances; Z88.1 Allergy status to other antibiotic agents; Z91.013 Allergy to seafood; W10.8XXA Fall (on) (from) other stairs and steps, initial encounter; Y93.89 Activity, other specified; Y92.89 Other specified places as the place of occurrence of the external cause; Y99.8 Other external cause status

== ENCOUNTER 2021-04-12 00:53 | Emergency (ER) | payer OTHER, MEDICAID ==
[~2021-04-12] VITALS: Ht 175.3 cm; Wt 226.8 kg
[~2021-04-12 00:53] MED LIST changes: +PERCOCET PO
[2021-04-12 02:37] LABS: ABSOLUTE BASOPHILS 0.1 thou/uL (0.0-0.2); ABSOLUTE EOSINOPHILS 0.2 thou/uL (0.0-0.7); ABSOLUTE LYMPHOCYTES 2.1 thou/uL (0.8-5.3); ABSOLUTE MONOCYTES 0.6 thou/uL (0.0-1.2); BASOPHILS 0.8 %; EOSINOPHILS 2.2 %; HEMATOCRIT 41.6 % (42.0-52.0); HEMOGLOBIN 14.2 gm/dL (14.0-18.0); LYMPHOCYTES 21.1 %; MCH 29.9 pg (26.0-34.0); MCHC 34.2 g/dL (28.0-37.0); MCV 87.5 fL (80.0-100.0); MONOCYTES 6.2 %; MPV 7.6 fl. (7.2-11.1); NUCLEATED RBCS 0 /100WBC; PLATELET COUNT* 266 thou/uL (150-400); POLYS 69.7 %; RBC 4.76 mil/uL (4.50-6.00); RDW-CV 16.1 % (10.5-14.5)
[2021-04-12 02:47] LABS: CALCIUM 8.3 mg/dL (8.5-10.1); CREATININE 0.6 mg/dL (0.6-1.3); POTASSIUM 3.6 mmol/L (3.5-5.1)
[2021-04-12 02:51] LABS: ALBUMIN 2.9 g/dL (3.4-5.0); TOTAL BILIRUBIN 0.3 mg/dL (<0.1-1.0); TOTAL PROTEIN 7.6 g/dL (6.4-8.2)
[2021-04-12] MEDS ORDERED: CIPROFLOXACIN500 M1 PO (03:19)
[2021-04-12] MEDS ORDERED: HYDROCODON-ACE1 EAC7 PO (03:19)
[2021-04-12] MEDS ORDERED: FLAGYL500 M1 PO (03:19)
[2021-04-12 04:44] VITALS: BP 156/64
== END 2021-04-12 04:44 | disposition home or self-care (01) ==
LOC: M.ERS 00:53
PROVIDERS: Personal Emergency Response Attendant
DX: K57.32 Diverticulitis of large intestine without perforation or abscess without bleeding (principal); G43.909 Migraine, unspecified, not intractable, without status migrainosus; J44.9 Chronic obstructive pulmonary disease, unspecified; I50.9 Heart failure, unspecified; F17.210 Nicotine dependence, cigarettes, uncomplicated; Z86.14 Personal history of Methicillin resistant Staphylococcus aureus infection; Z90.49 Acquired absence of other specified parts of digestive tract; Z88.5 Allergy status to narcotic agent; Z91.013 Allergy to seafood; Z91.041 Radiographic dye allergy status; Z88.8 Allergy status to other drugs, medicaments and biological substances; Z88.1 Allergy status to other antibiotic agents; Z79.899 Other long term (current) drug therapy

== ENCOUNTER 2021-05-14 15:58 | Emergency (ER) | payer OTHER, MEDICAID ==
[~2021-05-14] VITALS: Ht 175.3 cm; Wt 226.8 kg
[~2021-05-14 15:58] MED LIST changes: +CIPROFLOXACIN500 M1 PO; +FLAGYL500 M1 PO
[2021-05-14 16:29] LABS: URINE BILIRUBIN NEGATIVE (Negative); URINE BLOOD NEGATIVE (Negative); URINE CLARITY CLEAR; URINE COLOR YELLOW; URINE GLUCOSE-RANDOM 3+ (Negative); URINE KETONES NEGATIVE (Negative); URINE LEUKOCYTES-REFLEX NEGATIVE (Negative); URINE NITRITE-REFLEX NEGATIVE (Negative); URINE PROTEIN NEGATIVE (Negative); URINE SPECIFIC GRAVITY 1.015 (1.005-1.030); URINE UROBILINOGEN 0.2 E.U./dl (0.2-1.0)
[2021-05-14 17:05] LABS: ABSOLUTE BASOPHILS 0.1 thou/uL (0.0-0.2); ABSOLUTE EOSINOPHILS 0.2 thou/uL (0.0-0.7); ABSOLUTE LYMPHOCYTES 1.9 thou/uL (0.8-5.3); ABSOLUTE MONOCYTES 0.5 thou/uL (0.0-1.2); ABSOLUTE NEUTROPHILS 8.1 thou/uL (1.6-8.1); BASOPHILS 0.9 %; EOSINOPHILS 2.1 %; HEMATOCRIT 42.6 % (42.0-52.0); LYMPHOCYTES 17.8 %; MCH 28.7 pg (26.0-34.0); MCHC 32.9 g/dL (28.0-37.0); MCV 87.3 fL (80.0-100.0); MONOCYTES 4.3 %; MPV 7.5 fl. (7.2-11.1); NUCLEATED RBCS 0 /100WBC; PLATELET COUNT* 265 thou/uL (150-400); POLYS 74.9 %; RBC 4.88 mil/uL (4.50-6.00); RDW-CV 16.3 % (10.5-14.5); WBC 10.7 thou/uL (4.0-11.0)
[2021-05-14 17:12] LABS: CALCIUM 8.7 mg/dL (8.5-10.1); CREATININE 0.7 mg/dL (0.6-1.3)
[2021-05-14 17:17] LABS: TOTAL BILIRUBIN 0.2 mg/dL (<0.1-1.0); TOTAL PROTEIN 7.4 g/dL (6.4-8.2)
[2021-05-14 17:43] VITALS: BP 148/100
== END 2021-05-14 17:45 | disposition home or self-care (01) ==
LOC: M.ERS 15:58
PROVIDERS: Physician Assistant
DX: E11.65 Type 2 diabetes mellitus with hyperglycemia (principal); J44.9 Chronic obstructive pulmonary disease, unspecified; G43.909 Migraine, unspecified, not intractable, without status migrainosus; G47.33 Obstructive sleep apnea (adult) (pediatric); F17.210 Nicotine dependence, cigarettes, uncomplicated; Z86.14 Personal history of Methicillin resistant Staphylococcus aureus infection; Z90.49 Acquired absence of other specified parts of digestive tract; Z88.5 Allergy status to narcotic agent; Z91.041 Radiographic dye allergy status; Z88.8 Allergy status to other drugs, medicaments and biological substances; Z91.013 Allergy to seafood

== ENCOUNTER 2021-06-12 00:24 | Emergency (ER) | payer OTHER, MEDICAID ==
[~2021-06-12] VITALS: Ht 177.8 cm; Wt 226.8 kg
[2021-06-12 00:31] VITALS: BP 167/108
[2021-06-12] MEDS ORDERED: DOXYCYCLINE 10100 M2 PO (03:12)
[2021-06-12] MEDS ORDERED: HYDROCODON-ACE1 EAC8 PO (03:12)
== END 2021-06-12 04:00 | disposition home or self-care (01) ==
LOC: M.ERS 00:24
DX: L02.11 Cutaneous abscess of neck (principal); G43.909 Migraine, unspecified, not intractable, without status migrainosus; J44.9 Chronic obstructive pulmonary disease, unspecified; I50.9 Heart failure, unspecified; F31.9 Bipolar disorder, unspecified; F41.9 Anxiety disorder, unspecified; M19.90 Unspecified osteoarthritis, unspecified site; E11.9 Type 2 diabetes mellitus without complications; F17.210 Nicotine dependence, cigarettes, uncomplicated; Z86.14 Personal history of Methicillin resistant Staphylococcus aureus infection; Z98.890 Other specified postprocedural states; Z79.899 Other long term (current) drug therapy; Z88.5 Allergy status to narcotic agent; Z91.013 Allergy to seafood; Z91.041 Radiographic dye allergy status; Z88.1 Allergy status to other antibiotic agents

== ENCOUNTER 2021-09-15 08:37 | Emergency (ER) | payer OTHER, MEDICAID ==
[~2021-09-15] VITALS: Ht 175.3 cm; Wt 179.2 kg
[~2021-09-15 08:37] MED LIST changes: +DOXYCYCLINE 10100 M2 PO; +HYDROCODON-ACE1 EAC8 PO
[2021-09-15 08:40] VITALS: BP 130/95
[2021-09-15] MEDS ORDERED: BACTRIM DS TAB1 EACH PO (09:20)
[2021-09-15] MEDS ORDERED: CEPHALEXIN500 MG PO (09:20)
[2021-09-15] MEDS ORDERED: PERCOCET PO (09:20)
== END 2021-09-15 09:25 | disposition home or self-care (01) ==
LOC: M.ERS 08:37
DX: L73.2 Hidradenitis suppurativa (principal); G43.909 Migraine, unspecified, not intractable, without status migrainosus; J44.9 Chronic obstructive pulmonary disease, unspecified; I50.9 Heart failure, unspecified; E11.9 Type 2 diabetes mellitus without complications; F17.210 Nicotine dependence, cigarettes, uncomplicated; Z88.5 Allergy status to narcotic agent; Z91.013 Allergy to seafood; Z88.1 Allergy status to other antibiotic agents; Z88.8 Allergy status to other drugs, medicaments and biological substances; Z98.890 Other specified postprocedural states